=== PATIENT | male | born 1965 | race Caucasian/White ===

== ENCOUNTER 2025-08-24 12:50 | Emergency (ER) | payer MEDICARE, OTHER ==
[~2025-08-24] VITALS: Ht 175.3 cm; Wt 88.5 kg
[2025-08-24 13:42] VITALS: BP 137/115
[2025-08-24] MEDS ORDERED: BACTRIM DS TAB1 EAC1 PO (22:03)
[2025-08-24] MEDS ORDERED: Trimethoprim/Sulfamethoxazole DS Tab PO ONE (22:05)
== END 2025-08-24 22:26 | disposition home or self-care (01) ==
LOC: ER 12:50
DX: L02.01 Cutaneous abscess of face (principal)
CPT/HCPCS: 70487; 71046; 99283-25; A9270; Q9967